=== PATIENT | male | born 1970 | race Caucasian/White ===

== ENCOUNTER 2017-03-14 21:13 | Emergency (ER) | payer SELFPAY ==
[~2017-03-14] VITALS: Ht 170.2 cm; Wt 61.5 kg
[2017-03-14 21:14] VITALS: BP 131/87; PULSE 92; RESP 18; TEMP 98.3; O2SAT 97
[2017-03-14] MEDS ORDERED: LEVO.05 PO (21:29)
[2017-03-14] MEDS ORDERED: KETOROLAC TROMETHAMINE 60 MG/2 ML (IM) VIAL IM ONE (21:30)
[2017-03-14] MEDS ORDERED: ACETAMINOPHEN 500 MG CPLT PO ONE (21:45)
[2017-03-14] MEDS ORDERED: IBUPROFEN 400 MG TAB PO ONE (21:45)
[2017-03-14] MEDS ORDERED: DIAZ5 PO (21:46)
[2017-03-14] MEDS ORDERED: NAPR500 PO (21:46)
--- NOTE | 2017-03-14 21:46 | PD ---
HPI Chief Complaint: Pain: Acute or Chronic Time Seen by Provider: 21:20 Travel History International Travel<30 days: No Contact w/Intl Traveler<30days: No Traveled to known affect area: No History of Present Illness HPI So 46-year-old man who presents to the emergency department complaining of right calf pain and tenderness. He states he's had trouble with his catheter locking up on him the past. He is normally able to massage and relax it away. States today he was running in the surf when all of a sudden his calf locked up on him. He states despite applying BenGay, and massaging it, for several hours , and has not gone away. He is able to flex it some. He states he has worse pain when he is forced to completely dorsiflex his foot. He feels better with a plantar flex. He is able to walk on his toes on the right foot. Pain is more on the medial aspect of the mid to distal calf. History Past Medical History Narrative Medical Hypothyroidism Remote History of Hodgkin's lymphoma Social History Tobacco Use: No Allergies-Medications (Allergen,Severity, Reaction): Coded Allergies: No Known Allergies (Unverified , 03/14/17) Reported Meds & Prescriptions Reported Meds & Active Scripts Active Valium (Diazepam) 5 Mg Tab 5 Mg PO TID PRN Naprosyn (Naproxen) 500 Mg Tab 500 Mg PO BID PRN Reported Synthroid (Levothyroxine Sodium) 50 Mcg Tab 50 Mcg PO DAILY Review of Systems Except as stated in HPI: all other systems reviewed are Neg Physical Exam Narrative GENERAL: Well-appearing 46-year-old man, no acute distress. SKIN: Warm and dry. CARDIOVASCULAR: Warm and well perfused. RESPIRATORY: Normal rate and effort. MUSCULOSKELETAL: Normal gross appearance of the right leg. He keeps the leg plantarflexed. He has tenderness to palpation over the medial mid to distal calf. There is no lateral tenderness. There is no tenderness over the fibula. She'll tenderness over the ankle itself. The Achilles tendon is palpable and intact. He has strength in plantar flexion. There is no Achilles tendon tenderness. NEUROLOGICAL: Awake and alert. No gross deficits. Data Data Last Documented VS Vital Signs Date Time Temp Pulse Resp B/P Pulse Ox O2 Delivery O2 Flow Rate FiO2 03/14/17 21:14 98.3 92 18 131/87 97 Orders Tibia/Fibula (Ap/Lat) (03/14/17 ) Ketorolac Inj (Toradol Inj) (03/14/17 21:30) Ibuprofen (Motrin) (03/14/17 21:45) Acetaminophen (Tylenol) (03/14/17 21:45) MDM Medical Decision Making Medical Screen Exam Complete: Yes Emergency Medical Condition: Yes Interpretation(s) X-ray: Patient declines. Differential Diagnosis Calf strain, Achilles tendon injury, fibular fracture, other Narrative Course Medical decision making Is a 46-year-old presents emergency Department with medial calf pain in the mid to distal calf. I think this is a Muscle strain or tear. He looks well. Doubt bony injury. There is no evidence of Achilles tendon injury and he can tip toe walk. We'll check x-ray. Recommend supportive treatment. Diagnosis Primary Impression: Strain of calf muscle Additional Instructions: Take Naprosyn and Valium as needed for pain and muscle spasm. Follow-up with her primary doctor in 3-4 days if not completely improved. The stretching exercises as discussed. Return to the emergency department for any new or worsening symptoms. Med/Other Pt SpecificInfo: Prescription(s) given Scripts Diazepam (Valium)5 Mg Tab5 Mg PO TID PRN (MUSCLE SPASM) #12 TAB Ref 0 Prov:Wali Sánchez MD 03/14/17 Naproxen (Naprosyn)500 Mg [id number] Mg PO BID PRN (PAIN SCALE 1 TO 10) #20 TAB Prov:Wali Sánchez MD 03/14/17 Disposition: 01 DISCHARGE HOME Condition: Stable Wali Sánchez MD Mar 14, 2017 21:46
[2017-03-14 22:42] VITALS: BP 152/79
[2017-03-14 22:43] VITALS: RESP 18
== END 2017-03-14 22:42 | disposition home or self-care (01) ==
LOC: PHED 21:13
DX: S86.811A Strain of other muscle(s) and tendon(s) at lower leg level, right leg, initial encounter (principal); E03.9 Hypothyroidism, unspecified; Y93.02 Activity, running; Y92.832 Beach as the place of occurrence of the external cause; Y99.9 Unspecified external cause status
CPT/HCPCS: 99284